=== PATIENT | female | born 1985 | race African-American/Black ===

== ENCOUNTER 2017-01-03 22:19 | Emergency (ER) | payer OTHER ==
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
[2017-01-03 22:39] VITALS: BP 118/77; PULSE 82; TEMP 98.5; BMI 22.8
[2017-01-03] MEDS ORDERED: IBUPROFEN 600 MG TABLET (FP) PO ONE ×2 (22:43→22:54)
[2017-01-03] MEDS ORDERED: METHOCARBAMOL 500 MG TABLET PO ONE (22:44)
[2017-01-03] MEDS ORDERED: METHOCARBAMOL 500 MG TABLET ONE (22:54)
== END 2017-01-03 23:00 | disposition home or self-care (01) ==
LOC: FER 22:19
DX: M54.5 Low back pain (principal); F17.210 Nicotine dependence, cigarettes, uncomplicated; V48.1XXA Car passenger injured in noncollision transport accident in nontraffic accident, initial encounter; Y93.89 Activity, other specified; Y92.410 Unspecified street and highway as the place of occurrence of the external cause
CPT/HCPCS: 99281-25

== ENCOUNTER 2018-04-06 09:55 | Emergency (ER) | payer OTHER ==
--- NOTE | 2018-04-06 10:11 | PDOC ---
Attending Attestation - Resident Resident Name: TreeloyraeGoyo - ED Attending Attestation I have performed the following: I have examined & evaluated the patient, The case was reviewed & discussed with the resident, I agree w/resident's findings & plan, Exceptions are as noted - HPI HPI: 04/06/18 10:11 32y F no pmhx presents with complaint of R flank pain since eyerday. Pt notes the pain has roshan going on for 2 days, she took a motrin and it resolved until morning after she got to work. pt nots the pain is sharp/painful wosre in the R flank associated with nausea. pt notes feeling warm. denies any chills, cp , sob, leg swelling, back pain, abd pain, vag discharge or bleeding, dysuria, frequency. no prior history of this pain in the past surgical hx: sp c section GENERAL: The patient is awake, alert, and fully oriented, Nontoxic - in no acute distress. ABDOMEN: Soft, nontender, No guarding, no rebound. mild R CVA tenderness EXTREMITIES: Normal range of motion, No clubbing or cyanosis. No cords, erythema , or tenderness. SKIN: Warm, Dry, normal turgor, no rashes - Physicial Exam PE: 04/06/18 10:34 see above - Medical Decision Making 04/06/18 10:34 ddx includes but not limited to kidney stones, gall stones, msk, pyelo, uti will ck labs zofran/fluids for symptmatic releif ua to r/o uti, hematuria 04/06/18 10:34 04/06/18 13:42 labs reviewed noted for hematuria pts CT noted for hydronephrosis without obvious obstructing stone. there are some plebolith in the pelvis however. will refer the pt to nephrology/pmd for further evaluation recommended obtaining CT wth delayed contrast to evaluate hydro per radiotlogy recommendations, however pt declines, will obtain as outpatient.
[2018-04-06 10:20] VITALS: BMI 22.3
[2018-04-06] MEDS ORDERED: ONDANSETRON *ODT* 4 MG TABLET SL ONE (10:20)
--- NOTE | 2018-04-06 10:20 | PDOC ---
History of Present Illness - General Chief Complaint: Pain Stated Complaint: RIGHT SIDE PAIN Time Seen by Provider: 04/06/18 09:58 History Source: Patient Exam Limitations: No Limitations - History of Present Illness Initial Comments: 04/06/18 10:17 The patient is a 32F with no PMH who presents to the ER with complaints of R flank pain. The patient states that her pain started 2 days ago, is intermittent , described as cramping, radiating down to her R buttock. She states that the pain is alleviated by aleve but worsened by walking and moving her R leg around. She denies ever having pain like this. She admits to 3 bouts of vomiting this morning with fevers. She denies chills, CP, SOB, numbness, tingling, weakness, dysuria. 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 She denies any hx of UTI, new sexual contacts, and vaginal discharge. Past History - Past Medical History Allergies/Adverse Reactions: Allergies Allergy/AdvReac Type Severity Reaction Status Date / Time No Known Allergies Allergy Verified 04/06/18 09:56 Home Medications: Ambulatory Orders Naproxen [Naprosyn -] 500 mg PO BID #14 tablet 04/06/18 Anemia: No Asthma: No Cancer: No Cardiac Disorders: No CVA: No COPD: No CHF: No Dementia: No Diabetes: No GI Disorders: No Disorders: No HTN: No (POST ONLY 2013) Hypercholesterolemia: No Liver Disease: No Seizures: No Thyroid Disease: No - Surgical History Abdominal Surgery: No Appendectomy: No Cardiac Surgery: No Cholecystectomy: No Lung Surgery: No Neurologic Surgery: No Orthopedic Surgery: No - Suicide/Smoking/Psychosocial Hx Smoking Status: No Smoking History: Current every day smoker Have you smoked in the past 12 months: Yes Number of Cigarettes Smoked Daily: 7 'Breaking Loose' booklet given: 07/05/15 Hx Alcohol Use: Yes (SOCIAL) Drug/Substance Use Hx: Yes (SOCIAL) Substance Use Type: Alcohol, Marijuana Hx Substance Use Treatment: No Review of Systems - Review of Systems Able to Perform ROS?: Yes Comments:: 04/06/18 10:23 GENERAL/CONSTITUTIONAL: Positive for fever. No chills. No weakness. HEAD, EYES, EARS, NOSE AND THROAT: No change in vision. No ear pain or discharge. No sore throat. CARDIOVASCULAR: No chest pain, palpitations, or lightheadedness. RESPIRATORY: No cough, wheezing, shortness of breath, or hemoptysis. GASTROINTESTINAL: Positive nausea and vomiting. No diarrhea, constipation, or abdominal pain. GENITOURINARY: Positive for R flank pain. No dysuria, frequency, hematuria, or change in urination. MUSCULOSKELETAL: No joint or muscle swelling or pain. No neck or back pain. SKIN: No rash or lesions. NEUROLOGIC: No headache, numbness, tingling, focal weakness, loss of consciousness, or change in strength/sensation. Is the patient limited [place] proficient: No *Physical Exam - Physical Exam Comments: 04/06/18 10:24 GENERAL: Well developed, well nourished. Awake and alert. Mildly uncomfortable. HEENT: Normocephalic, atraumatic. Hearing grossly normal. Moist mucous membranes. PERRLA, EOMI. No conjunctival pallor. Sclera are non-icteric. Oropharynx is clear. NECK: Supple. Full ROM. CARDIOVASCULAR: Regular rate and rhythm. No murmurs, rubs, or gallops. Distal pulses are 2+ and symmetric. PULMONARY: No evidence of respiratory distress. Lungs clear to auscultation bilaterally. No wheezing, rales or rhonchi. ABDOMINAL: Soft. Tenderness to deep palpation in RUQ. Negative Bedolla's sign. Non-distended. No rebound or guarding. GENITOURINARY: No CVA tenderness bilaterally. MUSCULOSKELETAL: Normal range of motion at all joints. No bony deformities or tenderness. EXTREMITIES: No cyanosis. No clubbing. No edema. No calf tenderness or swelling. SKIN: Warm and dry. Normal capillary refill. No rashes. No jaundice. NEUROLOGICAL: Alert, awake, appropriate. Cranial nerves 2-12 grossly intact.Normal speech. Gait is normal without ataxia. PSYCHIATRIC: Cooperative. Good eye contact. Appropriate mood and affect. ED Treatment Course - LABORATORY CBC & Chemistry Diagram: 04/06/18 10:37 04/06/18 10:37 Medical Decision Making - Medical Decision Making 04/06/18 10:25 The patient is a 32F with no PMH who presents to the ER with complaints of R flank pain concerning for UTI, pyelo, septic stone, nephrolithiasis. Also on the ddx is PID, cystitis/cervicitis, however pt denies new sexual contacts and denies vaginal discharge. Pending UA, Upreg, and Ucx. Will treat w/ zofran. 04/06/18 11:34 Pt has CBC, CMP WNL. UA indicates hematuria. Likely stone. Will d/c with PCP f/ u and instructions on return precautions. 04/06/18 12:04 Pt states that her pain has returned. Will place order for CT and give IV tylenol for pain control. 04/06/18 13:24 CT Impression: 1. Mild right-sided hydronephrosis with dilatation of the proximal ureter. The etiology of this finding is uncertain and repeat contrast-enhanced imaging is now recommended. 2. Limited study, no acute pathology within the abdomen or pelvis. Please see above discussion. Case d/w radiologist who states that the calcifications in her pelvis are phleboliths. Pt states that she feels slightly better. Will d/c with PCP f/u. *DC/Admit/Observation/Transfer Diagnosis at time of Disposition: Flank pain Hematuria Qualifiers: Hematuria type: unspecified type Qualified Code(s): R31.9 - Hematuria, unspecified Hydronephrosis Qualifiers: Hydronephrosis type: unspecified Qualified Code(s): N13.30 - Unspecified hydronephrosis - Discharge Dispostion Disposition: HOME Condition at time of disposition: Stable Decision to Admit order: No - Prescriptions Prescriptions: Naproxen [Naprosyn -] 500 mg PO BID #14 tablet - Referrals Referrals: [facility] [place] [Provider Group] - Patient Instructions Printed Discharge Instructions: Kidney Stones -- Adult Additional Instructions: Please follow up with [facility] (Dr. Mercado or one of her associates) in 2-3 days. Please return to the ER if you have any signs or symptoms of chest pain, shortness of breath, uncontrollable fever, chills, nausea, vomiting, numbness, tingling, or weakness in any part of your body, changes in vision, or slurred speech. Please take your medications as prescribed and as needed. Please return to the ER if symptoms persist, worsen, or new symptoms arise. - Post Discharge Activity
[2018-04-06 10:26] LABS: HCG,QUALITATIVE URINE Negative
[2018-04-06] MEDS ORDERED: ONDANSETRON 4 MG/2 ML VIAL IVPUSH ONE (10:28)
[2018-04-06] MEDS ORDERED: SODIUM CHLORIDE 0.9% 1000 ML INFUS.BAG IV ONE (10:28)
[2018-04-06] MEDS ORDERED: ONDANSETRON 4 MG/2 ML VIAL ONE (10:33)
[2018-04-06 10:34] LABS: URINE APPEARANCE Clear; URINE BILIRUBIN Negative (NEGATIVE); URINE COLOR Yellow; URINE GLUCOSE (UA) Negative (NEGATIVE); URINE KETONE Trace (NEGATIVE); URINE LEUK ESTERASE Negative (NEGATIVE); URINE NITRITE Negative (NEGATIVE); URINE PROTEIN 2+ (NEGATIVE); URINE UROBILINOGEN 0.2 (0.2-1.0)
[2018-04-06 10:42] LABS: BASO % 0.7 % (0-2.0); EOS % 0.5 % (0-4.5); HEMATOCRIT 38.1 % (32.4-45.2); HEMOGLOBIN 12.6 GM/dl (10.7-15.3); LYMPH % 10.9 % (8-40); MCH 32.9 pg (25.7-33.7); MCHC 33.1 g/dl (32.0-36.0); MEAN CELL VOLUME 99.6 fl (80-96); MONO % 7.2 % (3.8-10.2); NEUT % 80.7 % (42.8-82.8); PLATELET COUNT 260 K/MM3 (134-434); RBC 3.83 M/mm3 (3.60-5.2); RDW 11.9 % (11.6-15.6); WHITE BLOOD COUNT 9.1 K/mm3 (4.0-10.8)
[2018-04-06] MEDS ORDERED: KETOROLAC TROMETHAMINE 30 MG/1 ML VIAL IVPUSH ONE (10:45)
[2018-04-06] MEDS ORDERED: KETOROLAC TROMETHAMINE 30 MG/1 ML VIAL ONE (10:48)
[2018-04-06 11:02] LABS: ALBUMIN 4.2 g/dl (3.5-5.0); ALK PHOS 38 U/L (32-92); ANION GAP 5 MMOL/L (8-16); BILIRUBIN,TOTAL 0.6 mg/dl (0.2-1.0); BLOOD UREA NITROGEN 10 mg/dl (7-18); CALCIUM 8.8 mg/dl (8.4-10.2); CHLORIDE 109 mmol/L (98-107); CO2 24 mmol/L (22-28); CREATININE 0.8 mg/dl (0.6-1.3); GLUCOSE,RANDOM 132 mg/dl (74-106); POTASSIUM 3.7 mmol/L (3.5-5.1); SGOT/AST 22 U/L (10-42); SGPT/ALT 11 U/L (10-40); SODIUM 138 mmol/L (136-145); TOT PROT 6.8 g/dl (6.4-8.3)
[2018-04-06 11:22] LABS: EPI CELLS 1+ /HPF; URINE RBC 20-40 /hpf (0-3); URINE WBC 0-3 (0-5)
[2018-04-06 11:23] LABS: URINE BACTERIA NONE SEEN /hpf (NEGATIVE)
[2018-04-06] MEDS ORDERED: ACETAMINOPHEN 1000 MG/100 ML VIAL (NON FORMULARY) IVPB ONE (12:04)
[2018-04-06] MEDS ORDERED: ACETAMINOPHEN INJECTION 100 ML IVPB ONE (12:08)
[2018-04-06 13:52] VITALS: BP 122/88; PULSE 72; TEMP 98.3
== END 2018-04-06 13:53 | disposition home or self-care (01) ==
LOC: FER 09:55
PROC: 3E0337Z Introduction of Electrolytic and Water Balance Substance into Peripheral Vein, Percutaneous Approach (ICD-10-PCS; principal; 2018-04-06)
PROC: 3E033NZ Introduction of Analgesics, Hypnotics, Sedatives into Peripheral Vein, Percutaneous Approach (ICD-10-PCS; 2018-04-06)
PROC: 3E0333Z Introduction of Anti-inflammatory into Peripheral Vein, Percutaneous Approach (ICD-10-PCS; 2018-04-06)
PROC: 3E033GC Introduction of Other Therapeutic Substance into Peripheral Vein, Percutaneous Approach (ICD-10-PCS; 2018-04-06)
DX: R10.31 Right lower quadrant pain (principal); R31.9 Hematuria, unspecified; N13.30 Unspecified hydronephrosis
CPT/HCPCS: 36415; 74176-TC; 80053; 81003; 81015; 84703; 85025; 87086; 99282-25; J0131; J7030

== ENCOUNTER 2019-04-05 08:51 | Day surgery (SDC) | payer OTHER ==
[2019-04-04 15:07] VITALS: BMI 20.5
[2019-04-05] MEDS ORDERED: LIDOCAINE HCL/PF 2% SDV 5ML VIAL ONE (11:14)
[2019-04-05] MEDS ORDERED: PROPOFOL 20 ML ONE (11:14)
[2019-04-05] MEDS ORDERED: MIDAZOLAM HCL 2 MG/2 ML SINGLE DOSE VIAL ONE (11:14)
[2019-04-05] MEDS ORDERED: KETOROLAC TROMETHAMINE 30 MG/1 ML VIAL ONE (11:35)
[2019-04-05 12:14] VITALS: TEMP 97.8
--- NOTE | 2019-04-05 13:23 | PREOP ---
DATE OF ADMISSION: 04/05/2019 DATE OF DICTATION: 04/05/2019 HISTORY OF PRESENT ILLNESS: Patient is a -[id number] female with a history of bilateral flank pain. Pain is colicky in nature, more on the right than the left. Also, has some frequency and urgency. PAST MEDICAL HISTORY: Patient denies any past medical history. She is a G2, P2. PAST SURGICAL HISTORY: Has undergone right shoulder surgery, as well as a umbilical hernia. ALLERGIES: She denies any allergies. HABITS: She does smoke cigarettes. PHYSICAL EXAMINATION: Chest: Clear. Abdomen: Soft. There is right CVA tenderness. There is also right lower quadrant tenderness. Genitourinary: Pelvic was normal. No masses. No cystorectocele. Harley negative. IMAGING: A renal sonogram revealed bilateral renal stones, right greater than left. LABORATORY: Urine is positive for blood. IMPRESSION: At present is symptomatic nephrolithiasis. PLAN: Right lithotripsy. Bryce [id number]
[2019-04-05 14:23] VITALS: BP 102/57; PULSE 67
--- NOTE | 2019-04-29 19:00 | OP ---
DATE OF OPERATION: 04/05/2019 PREOPERATIVE DIAGNOSIS: Right renal stone. POSTOPERATIVE DIAGNOSIS: Right renal stone. OPERATIVE PROCEDURE: Right extracorporeal shockwave lithotripsy. ANESTHESIA: MAC. DESCRIPTION OF PROCEDURE: Under above-stated anesthesia, patient received 2500 shocks of lithotripsy to the right kidney stone. There appeared to be a good fragmentation of the stone. There were no complications. The patient tolerated the procedure well. She returned to the recovery room in good condition. Bryce [id number]
== END 2019-04-05 13:30 | disposition home or self-care (01) ==
LOC: JASU-SURG 08:51
PROVIDERS: ATTEND Urology
PROC: 0TF3XZZ Fragmentation in Right Kidney Pelvis, External Approach (ICD-10-PCS; principal; 2019-04-05 10:30)
DX: N20.0 Calculus of kidney (principal)
CPT/HCPCS: 84703

== ENCOUNTER 2021-06-17 22:03 | Emergency (ER) | payer OTHER ==
[2021-06-17 22:08] VITALS: TEMP 98.1; BMI 23.0
[2021-06-17 23:18] LABS: ALBUMIN 4.4 g/dl (3.4-5.0); CALCIUM 9.6 mg/dl (8.5-10); CREATININE 0.8 mg/dl (0.55-1.3); TOT PROT 7.1 g/dl (6.4-8.2)
[2021-06-18 00:41] VITALS: BP 112/81; PULSE 73
[2021-06-18 01:37] LABS: BASO % 0.5 % (0-2.0); HEMOGLOBIN 12.9 GM/dL (10.7-15.3); WHITE BLOOD COUNT 5.4 K/mm3 (4.0-10.0)
[2021-06-18 01:40] LABS: EOS % 0.9 % (0-4.5); HEMATOCRIT 37.9 % (32.4-45.2); LYMPH % 31.2 % (8-40); MCH 33.9 pg (25.7-33.7); MEAN CELL VOLUME 99.7 fl (80-96); MONO % 11.2 % (3.8-10.2); NEUT % 56.2 % (42.8-82.8); PLATELET COUNT 274 10^3/uL (134-434); RDW 12.9 % (11.6-15.6)
== END 2021-06-18 01:20 | disposition home or self-care (01) ==
LOC: FER 22:03
DX: R09.1 Pleurisy (principal)
CPT/HCPCS: 36415; 71275-TC; 80053; 81025; 85025; 99284-25

== ENCOUNTER 2023-04-25 08:30 | Emergency (ER) | payer OTHER ==
[2023-04-25] MEDS ORDERED: KETOROLAC TROMETHAMINE 15 MG/ML VIAL IVPUSH ONE ×2 (08:33→10:47)
[2023-04-25] MEDS ORDERED: ONDANSETRON 4 MG/2 ML VIAL IVPUSH ONE ×2 (08:33→11:26)
[2023-04-25] MEDS ORDERED: SODIUM CHLORIDE 1,000 ML IV STA (08:34)
[2023-04-25 08:35] VITALS: BP 150/76; TEMP 97.7; BMI 23.0
[2023-04-25] MEDS ORDERED: KETOROLAC TROMETHAMINE 15 MG/ML VIAL ONE ×2 (08:50→11:10)
[2023-04-25] MEDS ORDERED: ONDANSETRON 4 MG/2 ML VIAL ONE ×2 (08:50→11:27)
[2023-04-25 09:00] LABS: HEMATOCRIT 39.5 % (32.4-45.2); HEMOGLOBIN 12.7 G/dL (10.7-15.3); MCH 32.5 pg (25.7-33.7); MCHC 32.2 g/dl (32.0-36.0); MEAN PLT VOLUME 7.8 fl (7.5-11.1); RBC 3.91 10^6/uL (3.60-5.2); RDW 13.2 % (11.6-15.6)
[2023-04-25 09:03] LABS: PLATELET ESTIMATE ADEQUATE
[2023-04-25 09:06] LABS: HCG,QUALITATIVE URINE Negative
[2023-04-25 09:07] LABS: CALCIUM 9.7 mg/dl (8.5-10.1); CREATININE 0.9 mg/dl (0.6-1.3); POTASSIUM 3.6 mmol/L (3.5-5.1)
[2023-04-25 11:09] VITALS: PULSE 65; RESP 17
== END 2023-04-25 11:52 | disposition home or self-care (01) ==
LOC: FER 08:30
PROC: 3E0333Z Introduction of Anti-inflammatory into Peripheral Vein, Percutaneous Approach (ICD-10-PCS; principal; 2023-04-25)
PROC: 3E033GC Introduction of Other Therapeutic Substance into Peripheral Vein, Percutaneous Approach (ICD-10-PCS; 2023-04-25)
PROC: 3E0333Z Introduction of Anti-inflammatory into Peripheral Vein, Percutaneous Approach (ICD-10-PCS; 2023-04-25)
PROC: 3E033GC Introduction of Other Therapeutic Substance into Peripheral Vein, Percutaneous Approach (ICD-10-PCS; 2023-04-25)
PROC: 3E0337Z Introduction of Electrolytic and Water Balance Substance into Peripheral Vein, Percutaneous Approach (ICD-10-PCS; 2023-04-25)
DX: R10.32 Left lower quadrant pain (principal); R11.10 Vomiting, unspecified; N20.0 Calculus of kidney
CPT/HCPCS: 36415; 74176-TC; 80048; 81003; 81015; 83690; 84703; 85027; 99284-25